=== PATIENT | female | born 1955 | race Caucasian/White ===

== ENCOUNTER 2016-07-28 17:36 | Emergency (ER) | payer OTHER ==
[~2016-07-28] VITALS: Ht 170.2 cm; Wt 88.6 kg
[~2016-07-28 17:36] MED LIST: ACET-171 PO; ASPI-973 PO; CARV12.52 PO; FUR20 PO; LISI30TA5 PO; NITR0.4T SL; OMEP40CA36 PO
[2016-07-28 18:09] VITALS: BP 183/87; PULSE 68; RESP 20; O2SAT 99
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
[2016-07-28] MEDS ORDERED: HYDR-3797 PO (21:06)
[2016-07-28 21:52] VITALS: BP 170/84; PULSE 70; RESP 16; O2SAT 100
== END 2016-07-28 21:49 | disposition home or self-care (01) ==
LOC: SED 17:36
DX: F43.0 Acute stress reaction (principal); K21.9 Gastro-esophageal reflux disease without esophagitis; I10 Essential (primary) hypertension; Z90.49 Acquired absence of other specified parts of digestive tract; Z88.1 Allergy status to other antibiotic agents; Z88.2 Allergy status to sulfonamides; Z88.5 Allergy status to narcotic agent
CPT/HCPCS: 99283; Q0177

== ENCOUNTER 2016-07-29 05:05 | Emergency (ER) | payer OTHER ==
[~2016-07-29] VITALS: Ht 170.2 cm; Wt 84.1 kg
[~2016-07-29 05:05] MED LIST changes: +HYDR-3797 PO
[2016-07-29 05:21] VITALS: BP 164/85; PULSE 75; RESP 20; O2SAT 100
[2016-07-29] MEDS ORDERED: Ondansetron 8 mg ODT Tablet PO ONE (05:25)
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
--- NOTE | 2016-07-29 08:39 | DRSVH ---
PROCEDURE: X-RAY RIGHT KNEE, THREE VIEWS ([id number]) INDICATIONS: 60 year-old female with right knee pain after fall. TECHNIQUE: 3 views of the knee were acquired. COMPARISON: [facility], CR, XR KNEE 3VW RT, 02/28/2015, 11:11. FINDINGS: Bones: No fractures or dislocations. Severe tricompartmental knee joint degeneration is again noted . No suspicious bony lesions. Soft tissues: There is new moderate joint effusion. No suspicious soft tissue calcifications. IMPRESSION: 1. No acute bony injuries of the right knee. Severe knee joint degeneration is unchanged. 2. New moderate joint effusion is a nonspecific finding, but may reflect soft tissue injury in the ap propriate clinical setting. Dictated by: Ramin Kaye M.D. on 07/29/2016 at 8:37 Approved by: Ramin Kaye M.D. on 07/29/2016 at 8:38
[2016-07-29 08:42] VITALS: BP 164/85; PULSE 75; RESP 20; O2SAT 100
== END 2016-07-29 07:50 | disposition home or self-care (01) ==
LOC: SED 05:05
DX: M25.561 Pain in right knee (principal); W18.39XA Other fall on same level, initial encounter; Y93.89 Activity, other specified; Y92.89 Other specified places as the place of occurrence of the external cause; Y99.8 Other external cause status; R11.0 Nausea; I10 Essential (primary) hypertension; K21.9 Gastro-esophageal reflux disease without esophagitis; M79.7 Fibromyalgia; F31.9 Bipolar disorder, unspecified; Z79.82 Long term (current) use of aspirin; Z98.890 Other specified postprocedural states; Z59.0 Homelessness; Z88.1 Allergy status to other antibiotic agents; Z88.2 Allergy status to sulfonamides; Z88.5 Allergy status to narcotic agent; Z88.8 Allergy status to other drugs, medicaments and biological substances